=== PATIENT | male | born 1935 | race Caucasian/White ===

== ENCOUNTER 2019-11-29 17:20 | Emergency (ER) | payer MEDICARE, BC ==
[~2019-11-29] VITALS: Ht 175.3 cm; Wt 80.0 kg
[2019-11-29] MEDS ORDERED: TETanus/Pertussis (Acell)/Diphther VAC/PF (Tdap-Adult) 0.5ml syringe IMVAC ONE (18:05)
[2019-11-29] MEDS ORDERED: acetaminophen 325mg tablet PO ONE (18:35)
--- NOTE | 2019-11-29 18:35 | NUR ---
pt with pain to his left knee and requests tylenol prior to dc. nu isaac aware.
[2019-11-29 18:45] VITALS: BP 131/76
== END 2019-11-29 18:47 | disposition home or self-care (01) ==
LOC: ER 17:21
DX: S51.012A Laceration without foreign body of left elbow, initial encounter (principal); W11.XXXA Fall on and from ladder, initial encounter; Y93.89 Activity, other specified; Y92.89 Other specified places as the place of occurrence of the external cause; Y99.9 Unspecified external cause status
CPT/HCPCS: 90471; 90715; 99283

== ENCOUNTER 2020-05-13 01:49 | Emergency (ER) | payer MEDICARE, BC ==
[~2020-05-13] VITALS: Ht 167.6 cm; Wt 73.6 kg
[2020-05-13] MEDS ORDERED: aspirin 81mg tab.chew PO ONE ×2 (02:55)
[2020-05-13 03:42] LABS: BASOPHILS % (AUTO) 0.4 % (0-1); EOSINOPHILS # (AUTO) 0.2 X10'3 (0-0.9); EOSINOPHILS % (AUTO) 1.9 % (0-6); HEMATOCRIT 39.2 % (42.0-52.0); HEMOGLOBIN 13.4 g/dl (14.0-17.9); LYMPHOCYTES % (AUTO) 11.2 % (21-51); MEAN CORPUSCULAR HEMOGLOBIN 31.9 PG (27.0-31.0); MEAN CORPUSCULAR HGB CONC 34.2 g/dL (33.0-36.5); MEAN CORPUSCULAR VOLUME 93.5 FL (78-98); MEAN PLATELET VOLUME 7.5 FL (7.4-10.4); MONOCYTES # (AUTO) 0.7 X10'3 (0-0.9); MONOCYTES % (AUTO) 7.9 % (2-12); NEUTROPHILS # (AUTO) 7.1 X10'3 (1.8-7.7); NEUTROPHILS % (AUTO) 78.6 % (42-75); PLATELET COUNT 214 X10'3 (140-440); RED BLOOD COUNT 4.19 X10'6 (4.70-6.10); RED CELL DISTRIBUTION WIDTH 14.2 % (11.5-14.5); WHITE BLOOD COUNT 9.1 X10'3 (4.5-11.0)
[2020-05-13 03:58] LABS: ALANINE AMINOTRANSFERASE 21 U/L (12-78); ALBUMIN 3.7 G/DL (3.4-5.0); ALBUMIN/GLOBULIN RATIO 1.2 (1.1-1.5); ALKALINE PHOSPHATASE 69 IU/L (46-116); ANION GAP 3 (8-16); ASPARTATE AMINO TRANSFERASE 24 U/L (10-37); BILIRUBIN,TOTAL 0.4 MG/DL (0.1-1.0); BLOOD UREA NITROGEN 21 MG/DL (7-18); BUN/CREATININE RATIO 20.2 (5.4-32.0); CALCIUM 9.1 MG/DL (8.5-10.1); CHLORIDE 101 MMOL/L (99-107); CREATININE 1.04 MG/DL (0.60-1.10); GLUCOSE 116 MG/DL (70-104); POTASSIUM 4.3 MMOL/L (3.5-5.1); SODIUM 134 MMOL/L (135-145); TOTAL PROTEIN 6.7 G/DL (6.4-8.2); eGFR 68 ML/MIN
[2020-05-13 04:11] LABS: C-REACTIVE PROTEIN 0.12 MG/DL (0.0-0.5); FERRITIN 72 NG/ML (26-388); LACTATE DEHYDROGENASE 177 U/L (85-227); MAGNESIUM 2.2 MG/DL (1.5-2.4); PARTIAL THROMBOPLASTIN TIME 24 SECONDS (22-32)
[2020-05-13] MEDS ORDERED: naproxen 500mg tablet PO ONE (04:30)
[2020-05-13] MEDS ORDERED: NAPR-56 PO (04:31)
[2020-05-13 04:54] VITALS: BP 110/61
== END 2020-05-13 04:58 | disposition home or self-care (01) ==
LOC: ER 01:49
DX: R07.81 Pleurodynia (principal); Z20.828 Contact with and (suspected) exposure to other viral communicable diseases; Z79.899 Other long term (current) drug therapy
CPT/HCPCS: 36415; 71045; 80053; 82728; 83615; 83735; 83880; 84145; 84484; 85025; 85379; 85384; 85610; 85730; 86140; 87635; 93005; 99285

== ENCOUNTER 2021-09-11 09:07 | Emergency (ER) | payer MEDICARE, BC ==
[~2021-09-11] VITALS: Ht 175.3 cm; Wt 68.0 kg
--- NOTE | 2021-09-11 09:29 | NUR ---
CASH POSTER AT BEDSIDE.
[2021-09-11 09:55] LABS: BASOPHILS # (AUTO) 0.1 X10'3 (0-0.2); BASOPHILS % (AUTO) 0.8 % (0-1); EOSINOPHILS # (AUTO) 0.1 X10'3 (0-0.9); EOSINOPHILS % (AUTO) 1.7 % (0-6); HEMATOCRIT 36.7 % (42.0-52.0); HEMOGLOBIN 12.3 g/dl (14.0-17.9); LYMPHOCYTES # (AUTO) 1.9 X10'3 (1.1-4.8); LYMPHOCYTES % (AUTO) 25.4 % (21-51); MEAN CORPUSCULAR HGB CONC 33.6 g/dL (33.0-36.5); MEAN CORPUSCULAR VOLUME 92.1 FL (78-98); MEAN PLATELET VOLUME 7.7 FL (7.4-10.4); MONOCYTES # (AUTO) 0.8 X10'3 (0-0.9); MONOCYTES % (AUTO) 10.5 % (2-12); NEUTROPHILS # (AUTO) 4.5 X10'3 (1.8-7.7); NEUTROPHILS % (AUTO) 61.6 % (42-75); PLATELET COUNT 257 X10'3 (140-440); RED BLOOD COUNT 3.98 X10'6 (4.70-6.10); RED CELL DISTRIBUTION WIDTH 14.5 % (11.5-14.5); WHITE BLOOD COUNT 7.3 X10'3 (4.5-11.0)
[2021-09-11 11:01] LABS: ALANINE AMINOTRANSFERASE 16 U/L (12-78); ALBUMIN 3.2 G/DL (3.4-5.0); ALBUMIN/GLOBULIN RATIO 1.1 (1.1-1.5); ALKALINE PHOSPHATASE 62 IU/L (46-116); ANION GAP 10 (8-16); ASPARTATE AMINO TRANSFERASE 22 U/L (10-37); BILIRUBIN,TOTAL 0.6 MG/DL (0.1-1.0); BLOOD UREA NITROGEN 17 MG/DL (7-18); BUN/CREATININE RATIO 18.3 (5.4-32.0); CALCIUM 8.9 MG/DL (8.5-10.1); CHLORIDE 97 MMOL/L (99-107); CREATININE 0.93 MG/DL (0.60-1.10); GLUCOSE 136 MG/DL (70-104); POTASSIUM 3.8 MMOL/L (3.5-5.1); SODIUM 133 MMOL/L (135-145); TOTAL CARBON DIOXIDE 25.8 MMOL/L (24-32); TOTAL PROTEIN 6.2 G/DL (6.4-8.2); eGFR 77 ML/MIN
[2021-09-11] MEDS ORDERED: ondansetron 4mg rapidly disintigrating tab PO ONE (12:05)
[2021-09-11] MEDS ORDERED: ONDA4TAB12 PO (12:20)
[2021-09-11 12:42] VITALS: BP 136/73
== END 2021-09-11 12:35 | disposition home or self-care (01) ==
LOC: ER 09:08
DX: R10.13 Epigastric pain (principal); R53.1 Weakness; R11.0 Nausea; R06.02 Shortness of breath; Z20.822 Contact with and (suspected) exposure to COVID-19
CPT/HCPCS: 36415; 71045; 80053; 82948; 83880; 84484; 85025; 87635; 93005; 99285; C9803

== ENCOUNTER 2021-10-04 18:53 | Inpatient (IN) | payer MEDICARE, BC ==
[~2021-10-04] VITALS: Ht 175.3 cm; Wt 68.2 kg
[~2021-10-04 18:53] MED LIST: ONDA4TAB12 PO
[2021-10-04 20:06] LABS: BASOPHILS % (AUTO) 0.4 % (0-1); EOSINOPHILS # (AUTO) 0.1 X10'3 (0-0.9); EOSINOPHILS % (AUTO) 0.6 % (0-6); HEMATOCRIT 34.7 % (42.0-52.0); HEMOGLOBIN 11.9 g/dl (14.0-17.9); LYMPHOCYTES % (AUTO) 12.8 % (21-51); MEAN CORPUSCULAR HEMOGLOBIN 31.4 PG (27.0-31.0); MEAN CORPUSCULAR HGB CONC 34.4 g/dL (33.0-36.5); MEAN CORPUSCULAR VOLUME 91.4 FL (78-98); MEAN PLATELET VOLUME 7.3 FL (7.4-10.4); MONOCYTES # (AUTO) 0.7 X10'3 (0-0.9); MONOCYTES % (AUTO) 8.2 % (2-12); NEUTROPHILS # (AUTO) 6.3 X10'3 (1.8-7.7); PLATELET COUNT 210 X10'3 (140-440); RED CELL DISTRIBUTION WIDTH 13.9 % (11.5-14.5); WHITE BLOOD COUNT 8.1 X10'3 (4.5-11.0)
[2021-10-04 20:07] LABS: CLARITY,URINE SLIGHTLY CLOUDY (Clear); COLOR,URINE YELLOW (Yellow); GLUCOSE, URINE NEGATIVE (Neg); KETONES,URINE 40 mg/dl (Neg); LEUKOCYTE ESTERASE ,URINE SMALL (Neg); NITRITES, URINE POSITIVE (Neg); OCCULT BLOOD,URINE MODERATE (Neg); PROTEIN,URINE TRACE mg/dl (Neg); UROBILINOGEN,URINE 0.2 E.U/dL (0.2-1.0)
[2021-10-04 20:09] LABS: UA COLLECTION TYPE FOLEY CATH
[2021-10-04 20:13] LABS: WBC,URINE TNTC /HPF (0-4)
[2021-10-04 20:14] LABS: BACTERIA,URINE 3+ /HPF (Neg); MUCUS STRANDS FEW /LPF (Neg); SQUAMOUS EPITHELIAL CELL,UR NONE SEEN /LPF (FEW)
[2021-10-04 20:15] LABS: WBC CLUMPS,URINE MODERATE /HPF (NEGATIVE)
[2021-10-04] MEDS ORDERED: CEPH250T PO (20:17)
[2021-10-04] MEDS ORDERED: cephalexin 250mg capsule PO ONE (20:20)
[2021-10-04 20:21] LABS: ALANINE AMINOTRANSFERASE 16 U/L (12-78); ALBUMIN 3.4 G/DL (3.4-5.0); ALBUMIN/GLOBULIN RATIO 1.2 (1.1-1.5); ALKALINE PHOSPHATASE 66 IU/L (46-116); ANION GAP 6 (8-16); ASPARTATE AMINO TRANSFERASE 23 U/L (10-37); BILIRUBIN,TOTAL 0.9 MG/DL (0.1-1.0); BLOOD UREA NITROGEN 14 MG/DL (7-18); BUN/CREATININE RATIO 14.4 (5.4-32.0); CALCIUM 8.8 MG/DL (8.5-10.1); CHLORIDE 90 MMOL/L (99-107); CREATININE 0.97 MG/DL (0.60-1.10); GLUCOSE 141 MG/DL (70-104); LIPASE 69 U/L (73-393); POTASSIUM 3.7 MMOL/L (3.5-5.1); SODIUM 123 MMOL/L (135-145); TOTAL PROTEIN 6.2 G/DL (6.4-8.2); eGFR 73 ML/MIN
[2021-10-04] MEDS ORDERED: temazepam 15mg capsule PO PRN (21:00)
[2021-10-04] MEDS ORDERED: mag hydrox/Alum hydrox/simeth 30ml oral suspension PO PRN (21:10)
[2021-10-04] MEDS ORDERED: bisacodyl 10mg suppository rectal RC PRN (21:10)
[2021-10-04] MEDS ORDERED: magnesium hydroxide 30ml (MOM) UD suspension PO PRN (21:10)
[2021-10-04] MEDS ORDERED: morphine 2 MG/ML inj. syringe IV PRN ×2 (21:10)
[2021-10-04] MEDS ORDERED: ondansetron 4mg rapidly disintigrating tab PO PRN (21:10)
[2021-10-04] MEDS ORDERED: diphenhydrAMINE 50 mg/ml inj IV PRN (21:10)
[2021-10-04] MEDS ORDERED: acetaminophen 325mg tablet PO PRN ×2 (21:10)
[2021-10-04] MEDS ORDERED: ondansetron/PF 4mg/2ml inj IV PRN (21:10)
[2021-10-04] MEDS ORDERED: diphenhydrAMINE 25mg capsule PO PRN (21:10)
[2021-10-04] MEDS ORDERED: HYDROcodone/acetaminophen 5mg/325mg tablet PO PRN (21:10)
[2021-10-04] MEDS ORDERED: acetaminophen 650mg rectal suppository RC PRN (21:10)
[2021-10-04 21:35] LABS: APTT 28 SECONDS (22-32)
[2021-10-04 21:38] LABS: HEMOGLOBIN A1C 5.8 % (4.5-6.2)
[2021-10-04 21:50] LABS: CREATINE KINASE 171 U/L (39-308); MAGNESIUM 1.8 MG/DL (1.5-2.4); PHOSPHORUS 3.4 MG/DL (2.3-4.5)
[2021-10-04 22:06] LABS: OSMOLALITY 259 MOSM/K (280-300)
[2021-10-04] MEDS ORDERED: NO HOME MEDS (22:26)
[2021-10-04] MEDS: normal saline 1000ml 1,000 ML IV SCH (22:57)
[2021-10-05 05:45] LABS: BASOPHILS % (AUTO) 0.5 % (0-1); EOSINOPHILS # (AUTO) 0.1 X10'3 (0-0.9); EOSINOPHILS % (AUTO) 0.7 % (0-6); HEMATOCRIT 35.5 % (42.0-52.0); LYMPHOCYTES # (AUTO) 1.1 X10'3 (1.1-4.8); LYMPHOCYTES % (AUTO) 12.4 % (21-51); MEAN CORPUSCULAR HEMOGLOBIN 30.7 PG (27.0-31.0); MEAN CORPUSCULAR HGB CONC 33.9 g/dL (33.0-36.5); MEAN CORPUSCULAR VOLUME 90.4 FL (78-98); MONOCYTES # (AUTO) 0.9 X10'3 (0-0.9); MONOCYTES % (AUTO) 10.2 % (2-12); NEUTROPHILS # (AUTO) 6.8 X10'3 (1.8-7.7); NEUTROPHILS % (AUTO) 76.2 % (42-75); PLATELET COUNT 198 X10'3 (140-440); RED BLOOD COUNT 3.92 X10'6 (4.70-6.10)
[2021-10-05 05:59] LABS: ALANINE AMINOTRANSFERASE 15 U/L (12-78); ALBUMIN 3.1 G/DL (3.4-5.0); ALBUMIN/GLOBULIN RATIO 1.1 (1.1-1.5); ALKALINE PHOSPHATASE 63 IU/L (46-116); ANION GAP 6 (8-16); ASPARTATE AMINO TRANSFERASE 26 U/L (10-37); BILIRUBIN,TOTAL 0.7 MG/DL (0.1-1.0); BLOOD UREA NITROGEN 13 MG/DL (7-18); BUN/CREATININE RATIO 17.1 (5.4-32.0); CALCIUM 8.9 MG/DL (8.5-10.1); CHLORIDE 93 MMOL/L (99-107); CHOL/HDL RATIO 2.3 (0.00-4.99); CHOLESTEROL 169 MG/DL (0-200); CREATININE 0.76 MG/DL (0.60-1.10); GLUCOSE 109 MG/DL (70-104); HDL CHOLESTEROL 74 MG/DL (35-60); LDL CHOLESTEROL 86 MG/DL (50-100); POTASSIUM 4.2 MMOL/L (3.5-5.1); SODIUM 126 MMOL/L (135-145); TOTAL CARBON DIOXIDE 27.2 MMOL/L (24-32); TOTAL PROTEIN 5.9 G/DL (6.4-8.2); TRIGLYCERIDES 39 MG/DL (20-135); eGFR > 90 ML/MIN
[2021-10-05] MEDS: normal saline 1000ml 1,000 ML IV SCH ×3 (07:10→20:09)
--- NOTE | 2021-10-05 08:28 | NUR ---
IV DC'D AFTER PT UP TO BATHROOM. NEW IV PLACED W/O COMPLICATIONS. PT ALERT AND AWAKE. DENIES PAIN, HAS NO REQUESTS. PT SITTING UPRIGHT EATING BREAKFAST.
[2021-10-05] MEDS: heparin, porcine 5000 units/ml vial SQ SCH ×2 (09:06→20:01)
[2021-10-05] MEDS: docusate sod 100mg capsule PO SCH ×2 (09:06→20:01)
[2021-10-05] MEDS: pantoprazole 40mg Tablet.DR PO SCH (09:06)
[2021-10-05] MEDS: cefTRIAXone 1g/NS 100ml IVPB 100 ML IV SCH (09:07)
--- NOTE | 2021-10-05 18:34 | NUR ---
Patient in room ED 12. I have received report from ZAY MACDONALD RN and had the opportunity to ask questions and assume patient care. Addendum: 10/05/21 at 1834 by Damaris Chong RN Amended: Links added.
[2021-10-05 19:20] VITALS: BP 115/85
[2021-10-05 22:00] VITALS: BP 115/85
--- NOTE | 2021-10-06 01:45 | NUR ---
PT INC ON HOSPITAL GOWN ACCIDENTLY ALMOST BROKE PLUG ON THE HOSPTIAL BED AIR MATTRESS AND READJUSTED IT SO IT WOULDN'T HAPPEN AGAIN. NTED SOME CONFUSION WITH THE PT BUT EASILY REDIRECTED AND REORIENTED. BED ALARM ON THE BED FOR THE PT.
[2021-10-06 02:00] VITALS: BP 109/63
[2021-10-06] MEDS: normal saline 1000ml 1,000 ML IV SCH (04:09)
--- NOTE | 2021-10-06 05:35 | NUR ---
resting without s&s of distress.
[2021-10-06 05:50] LABS: BASOPHILS % (AUTO) 0.7 % (0-1); EOSINOPHILS # (AUTO) 0.1 X10'3 (0-0.9); EOSINOPHILS % (AUTO) 1.4 % (0-6); HEMATOCRIT 32.4 % (42.0-52.0); HEMOGLOBIN 11.1 g/dl (14.0-17.9); LYMPHOCYTES # (AUTO) 1.4 X10'3 (1.1-4.8); LYMPHOCYTES % (AUTO) 23.4 % (21-51); MEAN CORPUSCULAR HEMOGLOBIN 31.3 PG (27.0-31.0); MEAN CORPUSCULAR HGB CONC 34.4 g/dL (33.0-36.5); MEAN CORPUSCULAR VOLUME 90.9 FL (78-98); MEAN PLATELET VOLUME 7.7 FL (7.4-10.4); MONOCYTES # (AUTO) 0.7 X10'3 (0-0.9); MONOCYTES % (AUTO) 11.7 % (2-12); NEUTROPHILS # (AUTO) 3.8 X10'3 (1.8-7.7); NEUTROPHILS % (AUTO) 62.8 % (42-75); PLATELET COUNT 195 X10'3 (140-440); RED BLOOD COUNT 3.56 X10'6 (4.70-6.10); RED CELL DISTRIBUTION WIDTH 14.2 % (11.5-14.5); WHITE BLOOD COUNT 6.1 X10'3 (4.5-11.0)
[2021-10-06 06:03] LABS: ALANINE AMINOTRANSFERASE 16 U/L (12-78); ALBUMIN 2.8 G/DL (3.4-5.0); ALBUMIN/GLOBULIN RATIO 1.1 (1.1-1.5); ALKALINE PHOSPHATASE 54 IU/L (46-116); ANION GAP 7 (8-16); ASPARTATE AMINO TRANSFERASE 28 U/L (10-37); BILIRUBIN,TOTAL 0.4 MG/DL (0.1-1.0); BLOOD UREA NITROGEN 14 MG/DL (7-18); BUN/CREATININE RATIO 13.9 (5.4-32.0); CALCIUM 8.7 MG/DL (8.5-10.1); CHLORIDE 102 MMOL/L (99-107); CREATININE 1.01 MG/DL (0.60-1.10); GLUCOSE 90 MG/DL (70-104); POTASSIUM 4.2 MMOL/L (3.5-5.1); SODIUM 134 MMOL/L (135-145); TOTAL CARBON DIOXIDE 25.1 MMOL/L (24-32); TOTAL PROTEIN 5.3 G/DL (6.4-8.2); eGFR 70 ML/MIN
--- NOTE | 2021-10-06 06:24 | NUR ---
Problems reprioritized. Patient report given, questions answered & plan of care reviewed with EDE RODRIGUEZ. Addendum: 10/06/21 at 0625 by Damaris Chong RN Amended: Links added.
--- NOTE | 2021-10-06 06:24 | NUR ---
Patient in room U 3011. I have received report from and had the opportunity to ask questions and assume patient care. Addendum: 10/06/21 at 0625 by Damaris Chong RN Amended: Links added.
[2021-10-06 06:32] VITALS: BP 112/64
--- NOTE | 2021-10-06 06:59 | NUR ---
Patient in room PCU 3011. I have received report from IVANNA MERA and had the opportunity to ask questions and assume patient care.
[2021-10-06] MEDS: cefTRIAXone 1g/NS 100ml IVPB 100 ML IV SCH (07:42)
[2021-10-06] MEDS: docusate sod 100mg capsule PO SCH (07:43)
[2021-10-06] MEDS: pantoprazole 40mg Tablet.DR PO SCH (07:43)
[2021-10-06] MEDS: heparin, porcine 5000 units/ml vial SQ SCH (07:45)
[2021-10-06] MEDS ORDERED: CIPR-202 PO (10:48)
--- NOTE | 2021-10-13 10:03 | NUR ---
Case Management DC follow up:Spoke with Patient via telephone.S/P : Patient reports: Denies bladder pain,dysuria, polyuria,hematuria, retention,abdominal pain/distention.Verbalizes compliance with aftercare.Verbalizes understanding of s/s that warrant 9-11/ER visit for further evaluation.Verbalizes understanding of new Rx:, why prescribed; continues/resumes current Rx as ordered.Verbalizes scheduled appoint with PCP on 10/15/21.Verbalizes staff were just great, good workup, glad he came here.Needs met, questions/concerns addressed at DC.No further questions/concerns regarding recent hospital stay and /or DC status at this time.
== END 2021-10-06 12:10 | disposition home or self-care (01) | DRG 690 ==
LOC: ER 18:56 → ED HOLD 21:15 → PCU 3S 10-05 18:30
PROVIDERS: ADMIT Family Medicine; ATTEND Family Medicine
DX: N39.0 Urinary tract infection, site not specified (principal); E87.1 Hypo-osmolality and hyponatremia; I50.22 Chronic systolic (congestive) heart failure; N17.9 Acute kidney failure, unspecified; N40.0 Benign prostatic hyperplasia without lower urinary tract symptoms; R31.9 Hematuria, unspecified; B96.20 Unspecified Escherichia coli [E. coli] as the cause of diseases classified elsewhere; D64.9 Anemia, unspecified; E86.0 Dehydration; R59.9 Enlarged lymph nodes, unspecified; R82.4 Acetonuria
CPT/HCPCS: 36415; 71250; 74176; 80053; 80061; 81001; 82550; 83036; 83605; 83690; 83735; 83880; 83930; 84100; 84443; 85025; 85610; 85730; 87040; 87077; 87081; 87088; 87186; 92508; 92616; 93306; 94667; 94760; 99285; G0378; J0696; J1644; J7030

== ENCOUNTER 2021-11-14 17:28 | Emergency (ER) | payer MEDICARE, BC ==
[~2021-11-14] VITALS: Ht 175.3 cm; Wt 68.2 kg
[2021-11-14 17:38] VITALS: BP 137/71
[2021-11-14 18:17] LABS: BASOPHILS % (AUTO) 0.7 % (0-1); EOSINOPHILS # (AUTO) 0.1 X10'3 (0-0.9); EOSINOPHILS % (AUTO) 1.6 % (0-6); HEMATOCRIT 34.9 % (42.0-52.0); HEMOGLOBIN 11.9 g/dl (14.0-17.9); LYMPHOCYTES # (AUTO) 0.9 X10'3 (1.1-4.8); LYMPHOCYTES % (AUTO) 18.1 % (21-51); MEAN CORPUSCULAR HEMOGLOBIN 31.3 PG (27.0-31.0); MEAN CORPUSCULAR HGB CONC 34.2 g/dL (33.0-36.5); MEAN CORPUSCULAR VOLUME 91.6 FL (78-98); MEAN PLATELET VOLUME 7.2 FL (7.4-10.4); MONOCYTES # (AUTO) 0.4 X10'3 (0-0.9); MONOCYTES % (AUTO) 8.9 % (2-12); NEUTROPHILS # (AUTO) 3.4 X10'3 (1.8-7.7); NEUTROPHILS % (AUTO) 70.7 % (42-75); PLATELET COUNT 222 X10'3 (140-440); RED BLOOD COUNT 3.81 X10'6 (4.70-6.10); RED CELL DISTRIBUTION WIDTH 14.4 % (11.5-14.5); WHITE BLOOD COUNT 4.9 X10'3 (4.5-11.0)
[2021-11-14 18:40] LABS: ALANINE AMINOTRANSFERASE 17 U/L (12-78); ALBUMIN 3.4 G/DL (3.4-5.0); ALBUMIN/GLOBULIN RATIO 1.3 (1.1-1.5); ALKALINE PHOSPHATASE 62 IU/L (46-116); ANION GAP 8 (8-16); ASPARTATE AMINO TRANSFERASE 23 U/L (10-37); BILIRUBIN,TOTAL 0.7 MG/DL (0.1-1.0); BLOOD UREA NITROGEN 20 MG/DL (7-18); BUN/CREATININE RATIO 20.8 (5.4-32.0); CALCIUM 8.9 MG/DL (8.5-10.1); CHLORIDE 98 MMOL/L (99-107); CREATININE 0.96 MG/DL (0.60-1.10); GLUCOSE 118 MG/DL (70-104); POTASSIUM 4.1 MMOL/L (3.5-5.1); SODIUM 134 MMOL/L (135-145); TOTAL CARBON DIOXIDE 28.1 MMOL/L (24-32); TOTAL PROTEIN 6.1 G/DL (6.4-8.2); eGFR 74 ML/MIN
== END 2021-11-14 19:25 | disposition left against medical advice (07) ==
LOC: ER 17:28
DX: R42 Dizziness and giddiness (principal); R10.13 Epigastric pain; R11.0 Nausea; Z53.21 Procedure and treatment not carried out due to patient leaving prior to being seen by health care provider
CPT/HCPCS: 36415; 71045; 80053; 83880; 84484; 85025; 93005